=== PATIENT | female | born 1970 | race Caucasian/White ===

== ENCOUNTER 2021-05-14 15:22 | Emergency (ER) | payer OTHER, SELFPAY ==
--- NOTE | ~2021-05-14 | CT_ITS ---
EXAMINATION: CT abdomen pelvis w con DATE: 05/14/2021 19:44 INDICATION: Right upper quadrant abdominal pain. TECHNIQUE: Computed tomography (CT) of the abdomen and pelvis was performed with 100 mL Omnipaque 350 intravenous contrast. Automated exposure control and iterative reconstruction technique were employe d. The dose-length product was 775.14 mGy-cm. COMPARISON: None. FINDINGS: The visualized portion of the lung bases demonstrate minimal atelectasis. No pleural effusi on. The heart size is normal. No pericardial effusion. There is a small sliding hiatal hernia. There is a 12 mm mass in right hepatic lobe with interrupted peripheral puddling of contrast, consistent wi th a hemangioma. There are low-attenuation masses in the liver measuring up to 9 mm, likely benign. T he gallbladder, spleen, pancreas, and adrenal glands are normal. There are cysts in the kidneys measu ring up to 11 mm on the right. There are no dilated loops of bowel. The appendix is normal. There are no pathologically enlarged lymph nodes. There is no free intraperitoneal fluid. There is mild thorac ic spondylosis. IMPRESSION: 1. Small sliding hiatal hernia. Reviewed, dictated and finalized at location A. [employer] REPAIR PERSON
--- NOTE | ~2021-05-14 | XR_ITS ---
EXAMINATION: XR chest 2V DATE: 05/14/2021 18:19 INDICATION: Right-sided chest pain. TECHNIQUE: Frontal and lateral views of the chest were obtained. COMPARISON: None. FINDINGS: The chest demonstrates clear lungs without pneumonia, pleural effusion, or pneumothorax. Th e heart size is normal. IMPRESSION: 1. No acute cardiopulmonary disease. Reviewed, dictated and finalized at location A. [employer] MA[employer]NA[employer]CE MECH[employer]IC
[2021-05-14 15:29] VITALS: BP 118/88; PULSE 82; RESP 20; TEMP 36.2; O2SAT 98
--- NOTE | 2021-05-14 18:10 | ECG_ITS ---
Measurements Intervals Bryson Rate: 72 P: 67 PA: 177 QRS: 18 QRSD: 84 T: 37 QT: 386 QTc: 424 Interpretive Statements SINUS RHYTHM POSSIBLE LEFT ATRIAL ENLARGEMENT BORDERLINE ECG Electronically Signed On 05-14-2021 19:16:01 [employer] by Arcadio Israel D.O.
--- NOTE | 2021-05-14 18:11 | ED.GENADULT ---
HPI - General Adult General Chief complaint: Unspecified Stated complaint: pain in right rib area Time Seen by Provider: 05/14/21 15:52 Source: patient Mode of arrival: ambulatory Limitations: no limitations History of Present Illness HPI narrative: This is a 50-year-old female that presents to the emergency department for intermittent right upper quadrant pain present since last night. Reports a cramping pain that has been intermittent. No known alleviating or exacerbating factors. Denies fever, shortness of breath, cough, nausea, vomiting, diarrhea, or dysuria. Related Data Home Medications Medication Instructions Recorded Confirmed triamcinolone acetonide 0.5 % 1 applic TOPICAL BID 04/26/19 12/25/20 topical cream Allergies Allergy/AdvReac Type Severity Reaction Status Date / Time NO KNOWN DRUG ALLERGIES Allergy Y Uncoded 05/14/21 15:48 (Class Allergy) Review of Systems Review of Systems: CONSTITUTIONAL: Denies fever CARDIOVASCULAR: Reports right sided chest pain RESPIRATORY: Denies cough or dyspnea. GASTROINTESTINAL: Reports abdominal pain. Denies nausea, vomiting, or diarrhea. GENITOURINARY: Denies dysuria or hematuria. All systems reviewed & are unremarkable except as noted in HPI and below PMFSH Past Medical History Medical History (Updated 05/14/21 @ 20:46 by Luanne Coon PA-C) Abnormal fasting glucose BMI 32.0-32.9,adult Body mass index (bmi) 31.0-31.9, adult (02/07/19) Breast cancer screening by mammogram Chronic depression Chronic nonallergic rhinitis Colon cancer screening (10/14/20) Cologuard screening 10/14/2020 was negative. Recheck in 3 years Irritable bowel syndrome with constipation and diarrhea Mixed hyperlipidemia Social History Social History (Updated 08/21/20 @ 16:04 by Chuyita Elmore MA) Smoking packs per day: 0.5 Smoking cigarettes per day: 10.0 Years smoked: 40 Smoking pack-years: 20.00 Smoking status: Current every day smoker Tobacco type: cigarettes Alcohol intake: current Drinks per week: 24 Alcohol use details: beer Substance use: never Substance use type: does not use Exam Narrative: GENERAL: Well-appearing, well-nourished, and in no acute distress. HEAD: Normocephalic, atraumatic. EYES: EOMI. CHEST: Clear to auscultation. No respiratory distress. No wheezes rales or rhonchi HEART: Regular rate and rhythm. No murmur heard. Normal peripheral pulses. ABDOMEN: Soft, nondistended, normal active bowel sounds. Tender to palpation in the RUQ, without guarding. No CVA tenderness EXTREMITIES: Normal range of motion. No edema. SKIN: Warm, dry, no rash. NEURO: No focal deficits. Alert and oriented x3. PSYCH: Normal mood and affect Course Vital Signs Vital signs: Vital Signs Temperature 97.2 F L 05/14/21 15: Pulse Rate 82 05/14/21 15: Respiratory Rate 20 05/14/21 15: Blood Pressure 118/88 05/14/21 15: Pulse Oximetry 98 05/14/21 15: Temperature 97.2 F L 05/14/21 15: Pulse Rate 82 05/14/21 15:29 Respiratory Rate 20 05/14/21 15: Blood Pressure 118/88 05/14/21 15: Pulse Oximetry 98 05/14/21 15:29 Medical Decision Making [facility] Narrative Medical decision making narrative: Patient presents to the ER for right upper quadrant present since this morning. Patient is afebrile and nontoxic-appearing. Her vitals are stable. CBC and metabolic panel without concerning findings. Lipase is normal. UA without evidence of infection. EKG and chest x-ray without concerning findings. Baseline troponin is negative. CT scan of the abdomen and pelvis is without acute findings. Patient was updated on case findings. She is stable and felt appropriate for further outpatient evaluation. She was given warnings to return to the ER Vital Signs Vital Signs: Vital Signs Temperature 97.2 F L 05/14/21 15:29 Pulse Rate 82 05/14/21 15:29 Respiratory Rate 20 05/14/21 15:29 Blood Pressure 118/88
[2021-05-14 18:49] LABS: Basophils Absolute Auto 0.1 K/mm3 (0.0-0.1); Basophils Percent Auto 0.5 % (0.2-1.2); Eosinophils Absolute Auto 0.1 K/mm3 (0-0.3); Eosinophils Percent Auto 1.2 % (0-4.4); Hematocrit 45.5 % (37.0-47.0); Hemoglobin 14.8 g/dL (12.0-15.0); Immature Granulocyte Absolute 0.03 K/mm3 (0.00-0.031); Immature Granulocyte Percent A 0.3 % (0-0.5); Mean Corpuscular HGB Conc 32.5 g/dl (32-36); Mean Corpuscular Hemoglobin 32.6 pg (26-34); Mean Corpuscular Volume 100.2 fl (80-100); Mean Platelet Volume 10.8 fl (7.4-10.4); Monocytes Absolute Auto 0.6 K/mm3 (0.1-0.6); Monocytes Percent Auto 5.5 % (2.6-8.5); Neutrophils Absolute Auto 6.5 K/mm3 (1.3-6.7); Neutrophils Percent Auto 62.5 % (45.5-73.1); Platelet Count Result 227 k/mm3 (150-375); Red Blood Count 4.54 M/mm3 (4.2-5.4); Red Cell Distribution Width 13.5 % (11.5-14.5); White Blood Count 10.3 K/mm3 (4.5-10.0)
[2021-05-14 19:01] LABS: Alanine Aminotransferase 26 U/L (4-35); Albumin Level 4.8 g/dL (3.5-5.1); Alkaline Phosphatase 75 U/L (38-126); Anion Gap 11 mmol/L (8-16); Aspartate Amino Transferase 27 U/L (14-36); Bilirubin,Total 0.5 mg/dL (0.2-1.3); Blood Urea Nitrogen 13 mg/dL (7-17); Calcium 9.6 mg/dL (8.4-10.2); Carbon Dioxide 25 mmol/L (22-30); Chloride 105 mmol/L (98-107); Estimated CRCL calculation 77 ml/min; Estimated Glomerular Filt Rate > 60; Glucose 108 mg/dL (65-110); Lipase 122 U/L (23-300); Potassium 3.7 mmol/L (3.4-5.0); Sodium 141 mmol/L (137-145)
[2021-05-14 19:02] LABS: Add Urine Microscopic? YES; Appearance Urine Cloudy (Clear); Bacteria Urine Trace /hpf; Bilirubin Urine Negative (Negative); Blood Urine Negative (Negative); Color Urine Yellow (Yellow); Glucose Urine UA Negative (Negative); Ketones Urine Negative (Negative); Leukocyte Esterase Ur Trace LEU/UL (Negative); Mucus Urine Heavy /lpf; Nitrate Urine Negative (Negative); Protein Urine Negative (Negative); Specific Grav Ur 1.024 (1.001-1.035); Squamous Epithelial Cell Urine Many /hpf (Few); Urobilinogen Urine Negative mg/dL (<2.0)
[2021-05-14 19:13] LABS: Troponin I < 0.012 ng/mL (0.000-0.034)
[2021-05-14 19:16] LABS: INR 0.9; Prothrombin Time 12.4 Seconds (11.1-14.7)
[2021-05-14 19:17] LABS: Partial Thromboplastin Time 26.4 SECONDS (22.3-36.8)
[2021-05-14 21:02] VITALS: BP 122/70; PULSE 68; RESP 18; O2SAT 99
== END 2021-05-14 21:04 | disposition home or self-care (01) ==
PROVIDERS: Physician Assistant; Emergency Provider Emergency Medicine; PCP Family Medicine
DX: R10.11 Right upper quadrant pain (principal); F32.A Depression, unspecified; E78.2 Mixed hyperlipidemia; F17.210 Nicotine dependence, cigarettes, uncomplicated
CPT/HCPCS: 36415; 71046; 74177; 80053; 81001; 83690; 84484; 85025; 85610; 85730; 93005; 99284; Q9967

== ENCOUNTER 2022-02-26 10:57 | Outpatient (CLI) | payer OTHER, SELFPAY ==
--- NOTE | ~2022-02-26 | XR_ITS ---
EXAMINATION: XR chest 2V DATE: 02/26/2022 11:19 INDICATION: Cough and shortness of breath TECHNIQUE: PA and lateral views of the chest are obtained. COMPARISON: 05/14/2021 FINDINGS: The lungs are free of acute opacities. No pleural effusion or pneumothorax. The cardiomedia stinal silhouette is normal. The visualized bones and soft tissues are unremarkable. IMPRESSION: 1. No acute cardiopulmonary abnormality. Reviewed, dictated and finalized at location B.
--- NOTE | ~2022-02-26 | CT_ITS ---
EXAMINATION: CT abdomen wo con DATE: 02/26/2022 11:31 INDICATION: Left upper quadrant pain TECHNIQUE: Computed tomography (CT) of the abdomen was performed without intravenous contrast. The do se-length product (DLP) was 417.85 mGy-cm. Automated exposure control and iterative reconstruction te chnique were employed. COMPARISON: None FINDINGS: The lung bases are clear. The heart size is normal. Evaluation is limited by the absence of intravenous contrast. There is a questionable low-attenuation lesion of the right hepatic lobe. Ther e is a small sliding hiatal hernia. The spleen, pancreas, gallbladder, and adrenal glands are normal. The kidneys are unremarkable. There are no pathologically enlarged abdominal lymph nodes. There is n o free intraperitoneal gas or evidence of bowel obstruction. IMPRESSION: 1. Small sliding hiatal hernia. 2. Possible low-attenuation lesion of the right hepatic lobe. Differential includes focal fatty infil tration. Follow-up with CT or MRI without and with contrast is recommended. Reviewed, dictated and finalized at location B. IMPRESSION: 1. Small sliding hiatal hernia. 2. Possible low-attenuation lesion of the right hepatic lobe. Differential incl udes focal fatty infiltration. Follow-up with CT or MRI without and with contra st is recommended.
[2022-02-26 12:05] LABS: Basophils Absolute Auto 0.1 K/mm3 (0.0-0.1); Basophils Percent Auto 0.7 % (0.2-1.2); Eosinophils Absolute Auto 0.1 K/mm3 (0-0.3); Eosinophils Percent Auto 1.2 % (0-4.4); Hematocrit 42.5 % (37.0-47.0); Hemoglobin 14.3 g/dL (12.0-15.0); Immature Granulocyte Absolute 0.03 K/mm3 (0.00-0.031); Immature Granulocyte Percent A 0.4 % (0-0.5); Lymphocytes Absolute Auto 2.42 K/mm3 (0.9-3.2); Lymphocytes Percent Auto 35.9 % (18.3-44.2); Mean Corpuscular HGB Conc 33.6 g/dl (32-36); Mean Corpuscular Hemoglobin 32.4 pg (26-34); Mean Corpuscular Volume 96.2 fl (80-100); Mean Platelet Volume 10.8 fl (7.4-10.4); Monocytes Absolute Auto 0.4 K/mm3 (0.1-0.6); Monocytes Percent Auto 5.5 % (2.6-8.5); Neutrophils Absolute Auto 3.8 K/mm3 (1.3-6.7); Neutrophils Percent Auto 56.3 % (45.5-73.1); Platelet Count Result 263 k/mm3 (150-375); Red Blood Count 4.42 M/mm3 (4.2-5.4); Red Cell Distribution Width 13.8 % (11.5-14.5); White Blood Count 6.7 K/mm3 (4.5-10.0)
[2022-02-26 12:18] LABS: Alanine Aminotransferase 27 U/L (6-35); Albumin Level 4.5 g/dL (3.5-5.1); Alkaline Phosphatase 66 U/L (38-126); Anion Gap 11 mmol/L (8-16); Aspartate Amino Transferase 28 U/L (14-36); Bilirubin,Total 0.4 mg/dL (0.2-1.3); Blood Urea Nitrogen 9 mg/dL (7-17); Carbon Dioxide 26 mmol/L (22-30); Chloride 104 mmol/L (98-107); Estimated Glomerular Filt Rate > 60; Glucose 110 mg/dL (65-110); Lipase 92 U/L (23-300); Potassium 3.7 mmol/L (3.4-5.0); Sodium 141 mmol/L (137-145)
== END 2022-02-26 10:58 | disposition home or self-care (01) ==
LOC: ANHIMG 11:00
PROVIDERS: PCP Family Medicine; Visit Provider Nurse Practitioner Family
DX: R10.11 Right upper quadrant pain (principal); R10.12 Left upper quadrant pain; R05.9 Cough, unspecified; K44.9 Diaphragmatic hernia without obstruction or gangrene
CPT/HCPCS: 36415; 71046; 74150; 80053; 83690; 85025

== ENCOUNTER → 2022-10-07 13:35 | Outpatient (CLI) | payer OTHER, SELFPAY ==
--- NOTE | ~2022-10-07 | MM_ITS ---
EXAMINATION: MM screening ilia BI w bernadine HISTORY: Screening mammogram TECHNIQUE: Craniocaudal and mediolateral oblique 3-D tomosynthesis images were obtained and synthetic 2-D images were generated. CAD analysis was submitted and interpreted. COMPARISON: No prior mammogram is available for comparison at this institution. BREAST PARENCHYMAL COMPOSITION: There are scattered areas of fibroglandular density. FINDINGS: Occasional benign calcifications. Bilateral axillary tail benign appearing lymph nodes. There is no evidence of suspicious mass, calcification, or architectural distortion to suggest malign rosemarie in either breast. There has been no suspicious interval change. IMPRESSION: 1. No mammographic evidence of malignancy. 2. Recommend routine screening mammography in one year. BI-RADS Category 2: Benign finding(s). Reviewed, dictated and finalized at location A.
== END ==
PROVIDERS: PCP Family Medicine; Visit Provider Family Medicine
DX: Z12.31 Encounter for screening mammogram for malignant neoplasm of breast (principal)
CPT/HCPCS: 77063; 77067

== ENCOUNTER 2024-02-06 08:22 | Day surgery (SDC) | payer OTHER, SELFPAY ==
[2024-01-03 09:06] VITALS: BMI 35.2
[2024-01-20 13:55] VITALS: BMI 32.1
--- NOTE | 2024-02-05 21:04 | PM.HPGS ---
History of Present Illness History of Present Illness Consent: Risks, benefits, and alternatives have been discussed and questions answered. Patient agrees to proceed with procedure. Chief complaint: Neoplasm Screening Narrative: Blanca Gomez is a 53 year old female Colonoscopy with possible biopsy or polypectomy or cautery or injection of substances. Review of Systems Review of Systems: All systems reviewed & are unremarkable except as noted in HPI and below PMFSH Past Medical History Medical History Abdominal pain Abnormal fasting glucose fasting glucose 105 on 05/25/2023. Glucose 110 with hemoglobin A1c 5.9 on 12/06/2023. Axillary hidradenitis suppurativa (~10/2022) BMI 32.0-32.9,adult BMI 33.0-33.9,adult BMI 34.0-34.9,adult BMI 35.0-35.9,adult Body mass index (bmi) 31.0-31.9, adult (02/07/19) Breast cancer screening by mammogram Normal mammogram 10/07/2022. Chronic depression Chronic nonallergic rhinitis Colon cancer screening (10/14/20) Cologuard screening 10/14/2020 was negative. Recheck in 3 years Cough Encounter for wellness examination in adult Irritable bowel syndrome with constipation and diarrhea Left upper quadrant pain Mixed hyperlipidemia Cholesterol 248, triglycerides 173, HDL excellent at 73 with LDL elevated at 144 with ratio normal at 3.4 on 05/25/2023. cholesterol 241, triglycerides 211, HDL 73, LDL 131 on 12/06/2023. Obesity (BMI 30-39.9) Obesity (BMI 30.0-34.9) Social History Social History Smoking packs per day: 0.5 Smoking cigarettes per day: 10.0 Years smoked: 35 Smoking pack-years: 17.50 Smoking status: Current every day smoker Tobacco type: cigarettes Alcohol intake: current Drinks per week: 18 Alcohol use details: beer Substance use: never Substance use type: does not use Current Housing: Decline to Answer Concerned About Future Housing: Decline to Answer Difficulty Paying Gas/Electric Bills: Decline to Answer Difficulty Paying for Meds: Decline to Answer Currently Unemployed: Decline to Answer Education: Decline to Answer Difficulty w/ Childcare or Family Care: Decline to Answer Living arrangements: alone Spiritual care concerns: No Meds Home Medications and Allergies Allergies Allergy/AdvReac Type Severity Reaction Status Date / Time No Known Allergies Allergy Verified 02/06/24 09:11 Exam Resp: Auscultation: clear to auscultation bilaterally Cardio: Rate: regular rate Rhythm: regular rhythm GI: GI Palp: Yes Soft to palpation and No Tenderness to palpation present (GI) Assessment and Plan Assessment and plan (1) Colon cancer screening: Onset Date: 10/14/20 Code(s): Z12.11 - Encounter for screening for malignant neoplasm of colon Status: Acute Assessment and Plan: Colonoscopy with possible biopsy or polypectomy or cautery or injection of substances.
--- NOTE | 2024-02-06 06:58 | P.PNAN_ITS ---
Anes - Initial Pre Proc Eval Procedure: Operation Date: 02/06/24 10:30 Proposed Procedures p Screening Colonoscopy - Freedom Joy MD Date/Time: 02/06/24 06:58 Surgeon: Freedom Joy MD Pre Op Diagnosis: Neoplasm Screening Patient Data Age: 53 Gender: F Height: 1.55 m Weight: 77.3 kg Allergies Allergy/AdvReac Type Severity Reaction Status Date / Time No Known Allergies Allergy Verified 02/06/24 09:11 Patient hx anesthesia problems: none Family hx anesthesia problems: none Results Review: All pre-operative results and documents have been reviewed as part of the pre- operative evaluation. [facility] Past Medical History Medical History (Updated 12/26/23 @ 17:08 by Sang Thompson MD) Abdominal pain Abnormal fasting glucose fasting glucose 105 on 05/25/2023. Glucose 110 with hemoglobin A1c 5.9 on 12/06/2023. Axillary hidradenitis suppurativa (~10/2022) BMI 32.0-32.9,adult BMI 33.0-33.9,adult BMI 34.0-34.9,adult BMI 35.0-35.9,adult Body mass index (bmi) 31.0-31.9, adult (02/07/19) Breast cancer screening by mammogram Normal mammogram 10/07/2022. Chronic depression Chronic nonallergic rhinitis Colon cancer screening (10/14/20) Cologuard screening 10/14/2020 was negative. Recheck in 3 years Cough Encounter for wellness examination in adult Irritable bowel syndrome with constipation and diarrhea Left upper quadrant pain Mixed hyperlipidemia Cholesterol 248, triglycerides 173, HDL excellent at 73 with LDL elevated at 144 with ratio normal at 3.4 on 05/25/2023. cholesterol 241, triglycerides 211, HDL 73, LDL 131 on 12/06/2023. Obesity (BMI 30-39.9) Obesity (BMI 30.0-34.9) Social History Social History Smoking packs per day: 0.5 Smoking cigarettes per day: 10.0 Years smoked: 35 Smoking pack-years: 17.50 Smoking status: Current every day smoker Tobacco type: cigarettes Alcohol intake: current Drinks per week: 18 Alcohol use details: beer Substance use: never Substance use type: does not use Current Housing: Decline to Answer Concerned About Future Housing: Decline to Answer Difficulty Paying Gas/Electric Bills: Decline to Answer Difficulty Paying for Meds: Decline to Answer Currently Unemployed: Decline to Answer Education: Decline to Answer Difficulty w/ Childcare or Family Care: Decline to Answer Living arrangements: alone Spiritual care concerns: No Anes - Eval Final PreProcedure Day of Procedure 02/06/24 06:58 Patient weight: obese Heart: regular rate and rhythm Lungs: clear to auscultation Airway: Mallampati scale class II Neurological: alert and oriented Last oral intake: >/= 8 hours ASA classification: III Emergent: no Anesthetic plan: proceed Anesthesia type and monitoring: general GIVS and standard monitoring Results Review: All pre-operative results and documents have been reviewed as part of the pre- operative evaluation. Informed Consent: The patient's anesthetic plan and its attendant risks and benefits were discussed with the patient/family/POA. Questions were solicited and answers provided to the satisfaction of the patient/family/POA.
[2024-02-06 09:27] VITALS: BP 114/90; PULSE 96; RESP 18; TEMP 37.1; O2SAT 97; BMI 32.1
[2024-02-06] MEDS: LACTATED RINGERS 1,000 ML 150 ML IV CONT (09:52)
[2024-02-06 10:35] VITALS: BP 122/82; PULSE 94; RESP 20; O2SAT 97
[2024-02-06 10:45] VITALS: BP 125/71; PULSE 85; RESP 20; O2SAT 100
[2024-02-06 10:55] VITALS: BP 115/85; PULSE 77; RESP 20; O2SAT 100
--- NOTE | 2024-02-06 11:14 | WPDANESPN ---
Anes - Prog Note Post-Op Date/Time: 02/06/24 11:14 Cardiovascular status: normal Respiratory status: normal Airway patency: baseline Mental status: baseline Post-Op hydration status: normal Vital Signs: Last Vital Signs Temp 37.1 C 02/06/24 09:27 Pulse 77 02/06/24 10:55 Resp 20 02/06/24 10:55 BP 115/85 02/06/24 10:55 Pulse Ox 100 02/06/24 10:55 O2 Del Method Room Air 02/06/24 10:55 Pain Score (VAS): 0 I/O: Intake & Output 02/05/24 02/06/24 02/06/24 23:59 07:59 15:59 Intake Total 700 Balance 700 Post-procedural complaints: none Patient Feedback: Patient satisfied with anesthetic care. Other Findings: Patient vital signs back to baseline. Patient denies nausea and vomiting. Patient's pain under control. Patient OK for discharge.
== END 2024-02-06 11:15 | disposition home or self-care (01) ==
PROVIDERS: PCP Family Medicine; Visit Provider Internal Medicine Gastroenterology
PROC: 0DJD8ZZ Inspection of Lower Intestinal Tract, Via Natural or Artificial Opening Endoscopic (ICD-10-PCS; CPT 45378; principal; 2024-02-06 10:30)
DX: Z12.11 Encounter for screening for malignant neoplasm of colon (principal); D12.5 Benign neoplasm of sigmoid colon; D12.4 Benign neoplasm of descending colon; K57.30 Diverticulosis of large intestine without perforation or abscess without bleeding; K64.8 Other hemorrhoids
CPT/HCPCS: 45385; 45381

== ENCOUNTER 2024-02-07 10:47 | Outpatient (NON) | payer OTHER, SELFPAY | END 2024-02-07 10:48 | disposition home or self-care (01) | LOC: ANHLAB 10:49 | PROVIDERS: PCP Family Medicine; Visit Provider Internal Medicine Gastroenterology | DX: Z12.11 Encounter for screening for malignant neoplasm of colon (principal); D12.4 Benign neoplasm of descending colon; D12.5 Benign neoplasm of sigmoid colon; K63.5 Polyp of colon | CPT/HCPCS: 88305 ==